=== PATIENT | male | born 1955 | race Caucasian/White ===

== ENCOUNTER 2024-11-13 09:32 | Day surgery (SDC) | payer MEDICARE ==
[2024-11-11 15:22] VITALS: BMI 23.4
[2024-11-13] MEDS ORDERED: Bupivacaine/Epinephrine 0.25% 30 ML VIAL ONE (10:38)
[2024-11-13] MEDS ORDERED: CEFAZOLIN 2 GM VIAL ONE (10:38)
[2024-11-13] MEDS ORDERED: PROPOFOL 20 ML ONE (10:45)
[2024-11-13] MEDS ORDERED: Lidocaine 1% PF 5 ML VIAL ONE (10:45)
[2024-11-13 11:15] LABS: #Basophils Less than 0.03 10x3/uL (0.0-0.2); #Eosinophils 0.09 10x3/uL (0.0-0.5); #Monocytes 0.72 10x3/uL (0.0-1.1); #Neutrophils 5.98 10x3/uL (1.5-8.4); %Basophils 0.1 % (0.0-2.0); %Eosinophils 1.0 % (0.0-6.0); %Lymphocytes 25.5 % (18.0-47.0); %Monocytes 7.8 % (0.0-10.0); %Neutrophils 64.6 % (40.0-75.0); Hematocrit 33.9 % (38.8-50.0); Hemoglobin 10.8 g/dL (13.5-17.5); Mean Corpuscular Hemoglobin 28.9 pg (27.0-33.0); Mean Corpuscular Volume 90.6 fL (81.2-95.1); Platelet Count 175 10x3/uL (150-450); Red Blood Cell (RBC) Count 3.74 10x6/uL (4.32-5.72); White Blood Cell (WBC) Count 9.25 10x3/uL (3.5-10.5)
[2024-11-13 11:26] LABS: Anion Gap 15 mmol/L (10-20); BUN (Urea Nitrogen) 14 mg/dL (8.4-25.7); Calc. Creatinine Clearance 118 mL/min (70-130); Calcium 8.8 mg/dL (7.8-10.44); Carbon Dioxide 29 mmol/L (23-31); Chloride 97 mmol/L (98-107); Glucose 118 mg/dL (83-110); Potassium 4.0 mmol/L (3.5-5.1); Sodium 137 mmol/L (136-145)
[2024-11-13] MEDS ORDERED: Ondansetron PF 4 MG/2 ML Vial ONE (11:43)
== END 2024-11-13 14:25 | disposition home or self-care (01) ==
LOC: CSHSDC 09:32
PROVIDERS: ATTEND Surgery
PROC: 0JH60WZ Insertion of Totally Implantable Vascular Access Device into Chest Subcutaneous Tissue and Fascia, Open Approach (ICD-10-PCS; principal; 2024-11-13)
DX: C13.9 Malignant neoplasm of hypopharynx, unspecified (principal); Z98.890 Other specified postprocedural states
CPT/HCPCS: 36561; 71045; 80048; 82962; 85025; C1788; J1642; J2405; J2704; J3010; 36416; J7620